=== PATIENT | female | born 1965 | race Caucasian/White ===

== ENCOUNTER 2018-10-01 18:17 | Emergency (ER) | payer MEDICAID | END 2018-10-01 19:24 | disposition home or self-care (01) | LOC: FTE 18:17 | DX: L24.9 Irritant contact dermatitis, unspecified cause (principal) | CPT/HCPCS: 99283; Z7502 ==

== ENCOUNTER 2018-11-29 21:41 | Emergency (ER) | payer MEDICAID ==
[2018-11-30] MEDS: KETOROLAC 30 MG INJ IM (00:32)
[2018-11-30] MEDS: DEXAMETHASONE 10 MG/ML 1 ML INJ IM (00:32)
== END 2018-11-30 00:59 | disposition home or self-care (01) ==
LOC: FTE 11-30 00:59
DX: R51 Headache (principal); M54.2 Cervicalgia; M25.512 Pain in left shoulder
CPT/HCPCS: 81025; 96372; 99284-25

== ENCOUNTER 2018-12-15 18:35 | Emergency (ER) | payer MEDICAID ==
[2018-12-15] MEDS: ALBUTEROL 0.083% (NEB) 2.5 MG/3 ML AMP HHN (20:41)
[2018-12-15] MEDS: IPRATROPIUM (NEB) 0.5 MG/2.5 ML AMP INH (20:41)
[2018-12-15] MEDS: SOD CHLORIDE 0.9% 500 ML IV (20:52)
[2018-12-15] MEDS: IBUPROFEN 200 MG TAB PO (20:52)
[2018-12-15] MEDS: ACETAMINOPHEN 325 MG TAB PO (20:52)
[2018-12-15 21:04] LABS: HEMATOCRIT 38.8 % (37.0-47.0); HEMOGLOBIN 12.5 g/dl (12.0-16.0); MEAN CORPUSCULAR HEMOGLOBIN 25.7 pg (29.0-33.0); MEAN CORPUSCULAR HGB CONC 32.2 g/dl (32.0-37.0); MEAN CORPUSCULAR VOLUME 79.7 fl (82.0-101.0); MEAN PLATELET VOLUME 10.3 fl (7.4-10.4); PLATELET COUNT 190 10^3/UL (140-415); RED BLOOD COUNT 4.87 10^6/ul (4.20-5.40)
[2018-12-15 21:04] LABS: WHITE BLOOD COUNT 3.3 10^3/ul (4.8-10.8)
[2018-12-15 21:09] LABS: ADD MAN DIFF? YES
[2018-12-15 21:11] LABS: ADD UMIC YES; UR ASCORBIC ACID 40 mg/dL (NEGATIVE); UR BILIRUBIN (Dip) NEGATIVE (NEGATIVE); UR BLOOD (Dip) NEGATIVE (NEGATIVE); UR CLARITY CLOUDY (CLEAR); UR COLOR YELLOW (YELLOW); UR GLUCOSE (Dip) NEGATIVE (NEGATIVE); UR KETONES (Dip) 1+ mg/dL (NEGATIVE); UR LEUKOCYTE ESTERASE (Dip) NEGATIVE Leu/ul (NEGATIVE); UR MUCUS FEW /HPF (NONE SEEN); UR NITRITE (Dip) NEGATIVE (NEGATIVE); UR RBC 2 /HPF (0-5); UR SPECIFIC GRAVITY (Dip) 1.023 (1.003-1.030); UR SQUAMOUS EPITHELIAL CELL MODERATE /HPF (FEW); UR TOTAL PROTEIN (Dip) NEGATIVE (NEGATIVE); UR TRANSITIONAL EPI CELL FEW /HPF (NONE SEEN); UR UROBILINOGEN (Dip) NEGATIVE (NEGATIVE); UR WBC 12 /HPF (0-5)
[2018-12-15 21:21] LABS: ANION GAP 12 (5-13); BLOOD UREA NITROGEN 12 mg/dl (7-20); CALCIUM 8.8 mg/dl (8.4-10.2); CARBON DIOXIDE 22 mmol/L (21-31); CHLORIDE 103 mmol/L (97-110); CREATININE 0.85 mg/dl (0.44-1.00); Estimated GFR > 60 mL/min (>60); GLUCOSE 83 mg/dl (70-220); POTASSIUM 4.2 mmol/L (3.5-5.1); SODIUM 137 mmol/L (135-144)
== END 2018-12-15 22:29 | disposition home or self-care (01) ==
LOC: FTE 18:35
DX: N39.0 Urinary tract infection, site not specified (principal)
CPT/HCPCS: 36415; 71046; 80048; 81001; 85025; 94664; 96360; 96361; 99284-25